=== PATIENT | female | born 1970 | race Caucasian/White ===

== ENCOUNTER 2018-06-21 07:29 | Emergency (ER) | payer OTHER ==
[2018-06-21] MEDS: DIAZEPAM 5 MG TAB PO (08:11)
[2018-06-21] MEDS: DEXAMETHASONE 10 MG/ML 1 ML INJ IM (08:12)
[2018-06-21] MEDS: KETOROLAC 60 MG INJ IM (08:12)
== END 2018-06-21 08:26 | disposition home or self-care (01) ==
LOC: FTE 07:29
DX: M54.9 Dorsalgia, unspecified (principal)
CPT/HCPCS: 81025; 96372; 99284-25